=== PATIENT | male | born 1945 | race Caucasian/White ===

== ENCOUNTER 2017-02-24 05:24 | Inpatient (IN) | payer OTHER ==
[2017-02-09 09:11] LABS: HEMATOCRIT 39.5 % (42.0-52.0); HEMOGLOBIN 12.4 gm/dL (14.0-18.0); MCH 24.3 pg (26.0-34.0); MCHC 31.4 g/dL (28.0-37.0); MCV 77.4 fL (80.0-100.0); RBC 5.1 mil/uL (4.50-6.00); RDW 19.8 % (10.5-14.5); WBC 8.9 thou/uL (4.0-11.0)
[2017-02-09 09:16] LABS: URINE BILIRUBIN NEGATIVE (Negative); URINE BLOOD TRACE (Negative); URINE COLOR YELLOW; URINE GLUCOSE-RANDOM* NEGATIVE (Negative); URINE KETONES NEGATIVE (Negative); URINE LEUKOCYTES-REFLEX NEGATIVE (Negative); URINE PROTEIN (DIPSTICK) NEGATIVE (Negative); URINE UROBILINOGEN 0.2 E.U./dl (0.2-1.0)
[2017-02-09 09:18] LABS: ALBUMIN 4.3 g/dL (3.4-5.0); CREATININE 1.7 mg/dL (0.7-1.3); POTASSIUM 4.7 mmol/L (3.5-5.1)
[2017-02-09 09:22] LABS: INR 3.2
[~2017-02-24] VITALS: Ht 180.3 cm; Wt 94.3 kg
[2017-02-24] VITALS (14 sets, daily range): BP systolic 106–130; BP diastolic 46–77
--- NOTE | ~2017-02-24 | O ---
[address] [place] [address] OPERATIVE REPORT Name: MICHELE ARNDT Room #: 411-P ADM IN M.R.#: [id number] Admission: 02/24/17 Attend Phys: Kwan Maguire MD Discharge: Date of : 41 Report #: [id number] THIS REPORT FOR: //name// CC: Karthik Maguire DATE OF SERVICE: 02/24/2017 PREOPERATIVE DIAGNOSIS: Right knee degenerative joint disease, severe. POSTOPERATIVE DIAGNOSIS: Right knee degenerative joint disease, severe. OPERATIVE PROCEDURE: Right total knee arthroplasty. SURGEON: Kwan Maguire M.D. DISTRICT PLANT SUPERVISOR: ESTEPHANIE Alvarado INDICATIONS FOR DISTRICT PLANT SUPERVISOR: During the course of operation, extensive manipulation, retraction and limb positioning was required. This was afforded to me by my medical office assistant. ANESTHETIC: General. INDICATIONS: See [facility]. IMPLANTS UTILIZED: DePuy PFC knee system, cruciate retaining femoral component size 4. We used a size 4 tibial tray with a 15 mm spacer and a 41 mm oval dome patella. DESCRIPTION OF PROCEDURE: After adequate general anesthesia had been obtained, the patient's right lower extremity was prepped and draped in the usual meticulous sterile fashion. Limb was exsanguinated with gravity, tourniquet inflated to 300 torr. An anterior midline incision was made, subQ divided sharply. Hemostasis obtained with electrocautery. Medial parapatellar incision was made. Infrapatellar fat pad excised. Medial release performed. A drill was used to drill the distal femur. This hole was enlarged, irrigated, suctioned, and the intramedullary guide placed the full length of the femur. Distal femoral cutting guide pinned at appropriate height, distal femoral cut was made. The measuring device determined the size 4 as appropriate size for this patient. We marked the distal femur, impacted the cutting guide into position and the anterior, posterior and chamfer cuts were made. Rongeur was used to remove additional osteophytes. At this time, the ACL was transected and the tibia translated anteriorly, menisci were excised. A drill was used to drill the central portion of the [facility] [address] [place] [address] OPERATIVE REPORT Name: MICHELE ARNDT Room #: 411-P [facility] IN M.R.#: [id number] Admission: 02/24/17 Attend Phys: Kwan Maguire MD Discharge: Date of : 41 Report #: [id number] tibia. This hole was enlarged, irrigated, suctioned, and the intramedullary guide placed the full length of tibia. Proximal tibial cutting guide placed at appropriate height. Proximal tibia cut was made. We put the trial components in position. 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 We had to do a medial release by pie crusting the medial collateral ligament and when this was performed, we had good balance with a 15 spacer in both flexion and extension. Patella was then measured, cutting guide clamped into place, patellar cut was made. A 41 template gave us the best coverage. Pedicles were drilled, trial component put in position, it tracked normally. At this time, the knee was taken through several cycles of flexion, extension, the tibial tray rotation was marked. Distal femur was drilled. Trial components were removed. The tibial keel cuts were made. We irrigated the knee with both pulse lavage and antibiotic irrigation. Bone plugs were placed in proximal tibia and distal femur. The cement was vacuum mixed and when it reached the appropriate consistency, the knee was thoroughly dried, the tibial tray was cemented in place. Excess cement was removed. The polyethylene was impacted in place and the femur impacted in place and knee was taken out to 30 degrees of flexion with uniform compression placed across components. Patellar button was then cemented into place and again excess cement was removed. The knee was irrigated and irrigation was allowed to rest in the wound until the cement fully cured. When it had done so, the knee was dried and inspected. Drains were placed superolaterally both deep and superficial. The retinacular layer closed with combination of interrupted [id number] #1 Vicryl as well as running #1 Tevdek. SubQ was closed with 2-0 Monocryl and the skin closed with ann. Sterile compressive dressing was applied. Tourniquet deflated. <ELECTRONICALLY SIGNED> By: Kwan Maguire MD 02/24/17 1411 [id number] Kwan Maguire MD /nt
[~2017-02-24 05:24] MED LIST: ALPHA LIPOIC A600 M1 PO; ASPIR 8181 MG PO; CARVEDILOL12.5 MG PO; COUMADIN 1MG TAB1 M1 PO; GLUCOTROL5 MG PO; HYDROXYZINE HCL10 M2 PO; JANUVIA50 MG PO; LASIX 40 MG TAB40 M2 PO; NEURONTIN600 MG PO; NITROSTAT0.4 M1 SL; PROTONIX40 M4 PO; VENTOLIN HFA 1818 GM INH; VITAMIN B-121000 MCG PO; VITAMIN E1000 UNI2 PO; VYTORIN 10-401 EACH PO
[2017-02-24 07:59] LABS: INR 1.4; PROTIME 14.6 Seconds (9.3-11.4)
[2017-02-25] VITALS: BP 109/51
[2017-02-25 04:00] VITALS: BP 113/62
[2017-02-25 06:15] LABS: HEMATOCRIT 30.1 % (42.0-52.0); HEMOGLOBIN 9.6 gm/dL (14.0-18.0); MCH 24.4 pg (26.0-34.0); MCHC 31.7 g/dL (28.0-37.0); RBC 3.92 mil/uL (4.50-6.00); RDW 18.8 % (10.5-14.5); WBC 13.4 thou/uL (4.0-11.0)
[2017-02-25 08:20] VITALS: BP 103/67
[2017-02-25 09:23] LABS: INR 1.5; PROTIME 14.9 Seconds (9.3-11.4)
[2017-02-25 20:00] VITALS: BP 103/53; BP 105/53
[2017-02-26 04:00] VITALS: BP 119/70
[2017-02-26 07:50] VITALS: BP 104/73
[2017-02-26 07:59] LABS: HEMATOCRIT 29.3 % (42.0-52.0); HEMOGLOBIN 9.3 gm/dL (14.0-18.0); MCH 24.5 pg (26.0-34.0); MCHC 31.9 g/dL (28.0-37.0); MCV 76.8 fL (80.0-100.0); RBC 3.82 mil/uL (4.50-6.00); RDW 19.4 % (10.5-14.5); WBC 16.2 thou/uL (4.0-11.0)
[2017-02-26 08:17] LABS: INR 2.2; PROTIME 21.9 Seconds (9.3-11.4)
[2017-02-26 16:54] VITALS: BP 122/67
[2017-02-26 20:48] VITALS: BP 112/67
[2017-02-26 23:40] VITALS: BP 119/64
[2017-02-27 04:11] LABS: HEMATOCRIT 30.3 % (42.0-52.0); HEMOGLOBIN 9.4 gm/dL (14.0-18.0); MCH 23.9 pg (26.0-34.0); MCHC 31.1 g/dL (28.0-37.0); MCV 76.9 fL (80.0-100.0); RBC 3.94 mil/uL (4.50-6.00); RDW 19.2 % (10.5-14.5); WBC 15.2 thou/uL (4.0-11.0)
[2017-02-27 04:21] LABS: PROTIME 30.3 Seconds (9.3-11.4)
[2017-02-27 05:30] VITALS: BP 108/67
[2017-02-27] MEDS ORDERED: NORCO 7.5-3251 EACH PO (06:50)
[2017-02-27 08:00] VITALS: BP 98/66
[2017-02-27 15:30] VITALS: BP 99/61
[2017-02-27 19:30] VITALS: BP 99/58
[2017-02-28 04:11] VITALS: BP 117/57
[2017-02-28 05:00] LABS: INR 2.5; PROTIME 25.4 Seconds (9.3-11.4)
[2017-02-28 08:06] VITALS: BP 115/59
[2017-02-28 11:36] VITALS: BP 115/59
[2017-02-28 15:24] VITALS: BP 115/59
== END 2017-02-28 16:07 | disposition home health service (06) | DRG 470 ==
LOC: TBA 05:24 → 4N 05:24 → PRE 07:28 → 4N 11:43
PROVIDERS: Orthopaedic Surgery; Physician Assistant
PROC: 0SRC0J9 Replacement of Right Knee Joint with Synthetic Substitute, Cemented, Open Approach (ICD-10-PCS; principal; 2017-02-24)
DX: M17.11 Unilateral primary osteoarthritis, right knee (principal); E11.9 Type 2 diabetes mellitus without complications; K21.9 Gastro-esophageal reflux disease without esophagitis; I11.0 Hypertensive heart disease with heart failure; I50.9 Heart failure, unspecified; Z88.0 Allergy status to penicillin
CPT/HCPCS: 10790; 50010; 50101; 50415; 50612; 50954; 51130; 51225; 51320; 51412; 51771; 52001; 52282; 53000; 53078; 53364; 56525; 56527; 62110; 62900; 64043; 70005